=== PATIENT | male | born 1950 | race Caucasian/White ===

== ENCOUNTER → 2018-07-25 | Outpatient (CLI) | payer OTHER ==
[~2018-07-25] MED LIST: IOPAMIDOL 370 MG/ML 200 ML INFUS..BTL INJ ONE; SODIUM CHLORIDE 0.9% 100 ML 100 ML ONE; SODIUM CHLORIDE 0.9% 250ML 250 ML ONE; SODIUM CHLORIDE 0.9% 500ML 500 ML ONE
[2018-07-25 15:19] LABS: CREATININE, SERUM 1.34 mg/dL (0.72-1.25)
--- NOTE | 2018-07-26 08:15 | Diagnostic Imaging Report ---
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 Technique: Arterial phase CT abdomen and pelvis and bilateral lower extremities after administration of 100 mL Isovue-370 intravenous contrast. Volume rendered 3-D images of the arterial tree generated on an independent workstation under physician supervision. RADIATION DOSE: DLP: 1631.3 mGy cm Dose modulation, iterative reconstruction, and/or weight based adjustment of the mA/kV was utilized to reduce the radiation dose to as low as reasonably achievable. FINDINGS: VASCULAR: Aortic dimensions: Diaphragmatic hiatus: 2.8 cm Level of the renal arteries: 2.3 cm Infrarenal aorta: 1.9 cm Right common iliac artery: 0.9 cm Left common iliac artery: 1.0 cm. No evidence of dissection or aneurysm. There is moderate atherosclerotic calcifications of the abdominal aorta. The celiac artery, SMA, and JULIETTE are patent. Renal arteries: Single bilateral renal arteries. Atherosclerotic changes of proximal left renal artery without severe stenosis. Moderate atherosclerotic changes of bilateral common iliac arteries with focal mild stenosis of the left common iliac artery on series 3, image 85. Moderate atherosclerotic changes of bilateral external iliac and common femoral arteries with multifocal mild stenoses. Extensive atherosclerotic changes of bilateral internal iliac arteries with multifocal mild to moderate stenoses. Right lower extremity: There has been right superficial femoral artery bypass. The [place] right superficial femoral artery is occluded at the origin, partially reconstitutes with hairline lumen proximally on series 3, image 151, and then occludes subsequently from its proximal portion. The profunda femoris artery demonstrates mild stenosis but is patent. The femoral artery bypass demonstrates multifocal mild atherosclerotic changes without significant stenosis. The popliteal artery is occluded proximally. The bypass reconstitutes the distal popliteal artery which consists moderate atherosclerotic changes with moderate stenoses. The tibioperoneal trunk demonstrates moderate atherosclerotic changes with moderate stenosis. The anterior tibial artery demonstrates multifocal atherosclerotic changes with multifocal moderate stenoses but appears patent to the distal leg. Anterior tibial artery is not visualized at the level of the ankle and the dorsalis pedis is not visualized. The peroneal artery is somewhat diminutive but is patent to the level of the lower leg, and is not visualized at the ankle. The posterior tibial artery demonstrates atherosclerotic changes with mild stenosis at the origin, but is patent throughout its course and is the dominant supply to the right foot. Left lower extremity: Atherosclerotic changes of the left superficial femoral artery which demonstrates multifocal severe stenosis at the origin and proximally. There are multiple superficial femoral artery stents extending from the proximal portion to the mid portion, which are occluded. The profunda femoris artery demonstrates multifocal mild stenoses and is patent. The distal superficial femoral artery reconstitutes from profunda femoris branches, and demonstrates extensive atherosclerotic changes with multifocal severe stenoses. There are extensive atherosclerotic changes of the popliteal artery with multifocal mild to moderate stenoses. Mild atherosclerotic changes of the anterior tibial artery, which is patent throughout its course and supplies the dorsalis pedis to the foot. Extensive atherosclerotic changes of the tibioperoneal trunk which demonstrates moderate to severe stenosis. The peroneal artery demonstrates multifocal severe stenosis of the origin and is occluded from the proximal portion. The posterior tibial artery demonstrates multifocal severe stenoses at the origin, is diminutive in caliber throughout its course and is not visualized distal to the lower leg. NON-VASCULAR FINDINGS: Lung bases: The lung bases are clear. Coronary atherosclerosis. Liver: No evidence of focal mass. No evidence of biliary ductal dilatation. Pancreas: Unremarkable. Spleen: No splenomegaly. Adrenal glands: Unremarkable. Kidneys: No evidence of hydronephrosis, stone, or solid mass. Urinary bladder: Unremarkable. Bowel: Normal caliber. No evidence of bowel obstruction. Sigmoid diverticulosis without CT evidence of diverticulitis. Normal appendix. Peritoneum: No free air or fluid. Lymph nodes: Normal Bones and soft tissues: No acute bony abnormality. Intramuscular right gluteal lipoma measuring up to 8.5 cm. There is subcutaneous edema in the bilateral lower extremities. Postsurgical changes involving the right groin and medial knee soft tissues. IMPRESSION: No evidence of abdominal aortic aneurysm or dissection. Patent mesenteric and renal vasculature. Right superficial femoral artery is occluded proximally and throughout its course. Patent right superficial femoral artery bypass which reconstitutes the distal popliteal artery. Moderate atherosclerotic changes of the right lower extremity with single vessel runoff to the right foot supplied by a patent posterior tibial artery. Anterior tibial artery is visualized to the lower leg but not seen distally, which may be secondary to occlusion or slow flow. Diminutive peroneal artery visualized to the level of the lower leg. Severe atherosclerotic changes of the left superficial femoral artery with multifocal severe stenoses proximally. Multiple proximal and mid left superficial femoral artery stents are occluded. Reconstitution of the distal left superficial femoral artery via patent profunda femoris collaterals. Severe atherosclerotic changes of the popliteal artery and tibioperoneal trunk. Essentially single vessel runoff to the left foot via the anterior tibial artery. Multifocal severe stenoses of the peroneal artery at the origin which is occluded proximally. Multifocal severe stenoses of the posterior tibial artery at the origin, which is diminutive in caliber and not visualized distal to the lower leg, which may be secondary to occlusion or slow flow. Subcutaneous edema in the bilateral lower extremities. Signed by: Dr. Janiya Mcarthur MD on 07/26/2018 8:11 AM
== END ==
LOC: CT 14:21
PROVIDERS: ATTEND Internal Medicine Cardiovascular Disease
DX: I74.3 Embolism and thrombosis of arteries of the lower extremities (principal)
CPT/HCPCS: 36415; 75635; 82565; 84520; 96360; J7040; J7050; Q9967

== ENCOUNTER 2018-10-23 09:23 | Inpatient (IN) | payer OTHER ==
[2018-10-20 10:28] LABS: BASOPHILS # (AUTO) 0.1 (0.0-0.1); BASOPHILS % 0.8 % (0.0-1.0); EOSINOPHILS # (AUTO) 0.3 (0.0-0.4); EOSINOPHILS % 3.8 % (0.0-6.0); HEMATOCRIT 37.9 % (38.2-49.6); HEMOGLOBIN 12.6 g/dL (14.0-18.0); LYMPHOCYTES # (AUTO) 1.5 (1.0-3.2); LYMPHOCYTES % 20.8 % (18.0-39.1); MEAN CORPUSCULAR HEMOGLOBIN 31.8 pg (28-32); MEAN CORPUSCULAR HGB CONC 33.2 g/dL (31-35); MEAN CORPUSCULAR VOLUME 95.7 fL (81-99); MONOCYTES # (AUTO) 0.8 (0.2-0.8); MONOCYTES % 10.8 % (4.4-11.3); NEUTROPHILS # (AUTO) 4.5 (2.1-6.9); NEUTROPHILS % 63.5 % (38.7-80.0); PLATELET COUNT 160 x10e3/uL (140-360); RED BLOOD COUNT 3.96 x10e6/uL (4.3-5.7); RED CELL DISTRIBUTION WIDTH 12.7 % (11.7-14.4)
--- NOTE | 2018-10-20 10:35 | Diagnostic Imaging Report ---
EXAMINATION: CHEST 2 VIEWS INDICATION: Pre-admit. COMPARISON: Chest radiograph 04/07/17. FINDINGS: The right costophrenic angle is partially excluded from the [id number]. TUBES and LINES: None. LUNGS: Lungs are well inflated. There is no evidence of pneumonia or pulmonary edema. PLEURA: No pleural effusion or pneumothorax. HEART AND MEDIASTINUM: The cardiomediastinal silhouette is unremarkable. There are atherosclerotic calcifications within the aorta. BONES AND SOFT TISSUES: No acute osseous abnormality. Degenerative changes of the visualized spine. UPPER ABDOMEN: No free air under the diaphragm. IMPRESSION: No acute radiographic abnormality. Signed by: Dr. Janiya Mcarthur MD on 10/20/2018 10:31 AM
[2018-10-20 10:52] LABS: ANION GAP 13.5 mmol/L (8-16); CALCIUM 9.1 mg/dL (8.4-10.2); CREATININE, SERUM 2.16 mg/dL (0.72-1.25)
[2018-10-20 10:53] LABS: POTASSIUM 5.5 mmol/L (3.5-5.1)
[~2018-10-23] VITALS: Ht 188 cm; Wt 140.6 kg
[2018-10-23 08:55] LABS: ANION GAP 12.3 mmol/L (8-16); CALCIUM 9.4 mg/dL (8.4-10.2); CREATININE, SERUM 1.33 mg/dL (0.72-1.25); POTASSIUM 5.3 mmol/L (3.5-5.1)
[~2018-10-23 09:23] MED LIST changes: +BACITRACIN 50,000 UNIT VIAL ONE; +CEFAZOLIN SOD 2 GM/D5W 50ML 50 ML IV ONE; +CILOSTAZOL100 MG PO; +CLOPIDOGREL75 MG PO; +CYCLOBENZAPRINE10 MG PO; +DEXAMETHASONE SOD PHOS 10 MG/1 ML VIAL ONE; +FISH OIL 1,0001 EAC2; +FUROSEMIDE40 MG PO; +GABAPENTIN 300 MG CAP ONE; +GLIPIZIDE ER5 MG; +GLIPIZIDE5 MG PO; +INSULIN REGULAR, HUMAN 100 UNIT/1 ML 3ML VIAL ONE; -IOPAMIDOL 370 MG/ML 200 ML INFUS..BTL INJ ONE; +LEVEMIR100 UNIT/1; +LYRICA75 MG; +OMEPRAZOLE40 MG; +POTASSIUM CHLO10 ME1 PO; +PRIMIDONE1 GM; +ROPIVACAINE 246.25 MG, EPINEPHRINE HCL 1:1000 1ML 0.5 MG, CLONIDINE HCL 0.08 MG, KETORO... INJ ONE; +SIMVASTATIN40 MG PO; -SODIUM CHLORIDE 0.9% 100 ML 100 ML ONE; -SODIUM CHLORIDE 0.9% 250ML 250 ML ONE; +TRANEXAMIC ACID 1,000 MG/10 ML ML ONE; +VANCOMYCIN HCL 1,000 MG ONE; +VASOTEC10 M1
--- OUTSIDE RECORDS SUMMARY | 2018-10-23 09:25 | XMS REPORT | Clinical Summary ---
Author Author [facility] Organization [facility] Address Unknown Phone Unavailable Care Team Providers Care Chief [facility] Name Role Phone Luis Roe MD PCP Allergies No Known Allergies Medications End Date Status Medication Sig Dispensed Refills Start Date Active ONETOUCH ULTRA TEST strip 0 test strips 7 Active ALCOHOL PREP PADS pads, 0 medicated 7 Active ONETOUCH ULTRA CONTROL 0 solution 7 Active ONETOUCH ULTRA2 kit 0 7 Active omeprazole (PriLOSEC) 40 TK ONE C PO 3 MG capsule QAM 7 Active buPROPion XL (WELLBUTRIN TK 1 T PO QD 5 XL) 150 MG 24 hr tablet 7 Active potassium chloride TK 1 T PO 2 (KLOR-CON) 10 MEQ CR QAM 7 tablet Active simvastatin (ZOCOR) 40 MG TK 1 T PO 2 tablet QHS 7 Active enalapril (VASOTEC) 20 MG TK 1 T PO BID 2 tablet 7 Active furosemide (LASIX) 40 mg TK 1 T PO QD 3 tablet 7 Active clopidogrel (PLAVIX) 75 TK 1 T PO 2 mg tablet QAM 7 Active glipiZIDE (GLUCOTROL) 10 TK 1 T PO QAM 2 MG 24 hr tablet 7 Active metoprolol tartrate TK 1 T PO 2 (LOPRESSOR) 50 mg tablet BID 7 Active cilostazol (PLETAL) 100 TK 1 T PO 30 2 MG tablet MINUTES 7 BEFORE OR 2 HOURS AFTER BREAKFAST AND DINNER BID UTD FOR 90 DAYS Active primidone (MYSOLINE) 50 TK 2 TS PO 2 MG tablet TID 7 Active LANTUS SOLOSTAR 100 INJECT 80 2 unit/mL injection (pen) UNITS SQ QAM 7 AND 40 UNITS SQ QPM Active HYDROcodone-acetaminophen TK 1 T PO 0 (NORCO) 10-325 mg per TID 7 tablet Active lancets 30 gauge misc 0 7 Active lancing device misc 0 7 Active ciprofloxacin (CIPRO) 500 TK 1 T PO 0 MG tablet BID 9 Active CHANTIX STARTING MONTH U BID UTD 0 BOX 0.5 mg (11)- 1 mg 9 (42) tablet Active LEVEMIR FLEXTOUCH U-100 INJ 90 UNITS 3 INSULN 100 unit/mL (3 mL) QAM AND 90 8 insulin pen UNITS QPM Active Problems Problem Noted Date Hearing loss, sudden 03/01/2017 Asymmetrical hearing loss 03/01/2017 Bilateral impacted cerumen 03/01/2017 Encounters Care Team Description Date Type Specialty Nelson Haji MD Bilateral impacted cerumen (Primary Dx) 08/18/2018 Office Visit Otolaryngology after 10/22/2017 Social History Date Tobacco Use Types Packs/Day Years Used Current Every Day Smoker Smokeless Tobacco: Never Used Alcohol Use Drinks/Week oz/Week Comments Yes Sex Assigned at Date Recorded Not on file Industry Job Start Date Occupation Not on file Not on file Not on file Travel End Travel History Travel Start No recent travel history available. Last Filed Vital Signs Time Taken Vital Sign Reading 08/18/2018 10:06 AM [employer] Blood Pressure 139/68 08/18/2018 10:06 AM [employer] Pulse 80 - Temperature - - Respiratory Rate - - Oxygen Saturation - - Inhaled Oxygen - Concentration 08/18/2018 10:06 AM [employer] Weight 139 kg (307 lb) 08/18/2018 10:06 AM [employer] Height 188 cm (6' 2") 08/18/2018 10:06 AM [employer] Body Mass Index 39.42 Plan of Treatment Care Team Description [place] [address] [facility] [address] [place] [address] 02/15/2019 Office Visit Otolaryngology Health Maintenance Due Date Last Done Comments COLON CANCER SCREENING 1999 SHINGLES VACCINES (#1) 1999 65+ PNEUMOCOCCAL VACCINE 2014 (1 of 2 - PCV13) PNEUMOCOCCAL 2014 POLYSACCHARIDE VACCINE AGE 65 AND OVER INFLUENZA VACCINE 02/08/2019 Results Not on fileafter 10/22/2017 Insurance Payer Benefit Subscriber ID Type Phone Address Plan / Group [employer] xxxxxxxxx HMO [facility] Advance Directives Patient has advance care planning documents on file. For more information, alejandrina melvin contact: Tae Poole [address] [place] [address]
--- OUTSIDE RECORDS SUMMARY | 2018-10-23 09:25 | XMS REPORT ---
[email or web address]nect Address Unknown Phone Unavailable Care Team Providers Care Recruitment Intern Name Role Phone ROSS PRICE Unavailable Unavailable ANITRA FREEMAN Unavailable Unavailable VANDANA ROE Unavailable Unavailable Payers Payer Name Policy Type Policy Number Effective Date Expiration Date Problems This patient has no known problems. Allergies, Adverse Reactions, Alerts Allergy Name Allergy Type Status Severity Reaction(s) Onset Date Inactive Date Treating Clinician Comments No Known Allergies DA Active U 2018-09-12 00:00:00 Medications This patient has no known medications. Results Test Description Test Time Test Comments Text Results Atomic Results Result Comments CHEST 2 VIEWS 2018-10-20 10:25:00 [place] [address] Patient Name: VANDANA ESPINOZA MR #: [id number] : 1950 Age/Sex: 68/M Req #: [id number] Adm Physician: Ordered by: ROSS PRICE MD Report #: [id number] Location: OR Room/Bed: Procedure: [id number] DX/CHEST 2 VIEWS Exam Date: Exam Time: REPORT STATUS: Signed EXAMINATION: CHEST 2 VIEWS INDICATION: Pre-admit. COMPARISON: Chest radiograph 04/07/17. FINDINGS: The right costophrenic angle is partially excluded from the [id number]. TUBES and LINES: None. LUNGS: Lungs are well inflated. There is no evidence of pneumonia or pulmonary edema. PLEURA: No pleural effusion or pneumothorax. HEART AND MEDIASTINUM: The cardiomediastinal silhouette is unremarkable. There are atherosclerotic calcifications within the aorta. BONES AND SOFT TISSUES: No acute osseous abnormality. Degenerative changes of the visualized spine. UPPER ABDOMEN: No free air under the diaphragm. IMPRESSION: No acute radiographic abnormality. Signed by: Dr. Robbie Lainez MD on 10/20/2018 10:31 AM Dictated By: ROBBIE LAINEZ MD 1031 Transcribed By: ROMINA on 10/20/18 1031 COPY TO: ROSS PRICE MD COAGULATION TIME ACTIVATED 2018-09-13 15:29:00 COAGULATION TIME ACTIVATED (test code=ACT) 363 SECONDS 105-167 BASIC METABOLIC [id number] 15:18:00* Test Item Value Reference Range Comments SODIUM (test code=NA) 138 mEq/L 134-147 POTASSIUM (test code=K) 4.2 mEq/L 3.4-5.0 CHLORIDE (test code=CL) 109 mEq/L 100-108 CARBON DIOXIDE (test code=CO2) 25 mEq/L 21-33 ANION GAP (test code=GAP) 8 0-20 GLUCOSE (test code=GLU) 61 mg/dL 70-110 BLOOD UREA NITROGEN (test code=BUN) 32 mg/dL 7-18 GLOMERULAR FILTRATION RATE (test code=GFR) 54.7 80-90 Units of measure=ml/min/1.73 m2 CREATININE (test code=CREAT) 1.3 mg/dL 0.6-1.3 CALCIUM (test code=CA) 9.0 mg/dL 8.0-10.5 PROTHROMBIN [id number] 14:57:00* Test Item Value Reference Range Comments PROTHROMBIN TIME PATIENT (test code=PTP) 12.1 SECONDS 9.3-12.9 INTERNATIONAL NORMAL RATIO (test code=INR) 1.1 0.8-1.2 TARGET INR BY INDICATION Indication INR1. Prophylaxis of venous thrombosis 2.0 - 3.0 (orthopedic surgery), Prophylaxis of venous thrombosis (other than high-risk surgery), Treatment of Deep Vein Thrombosis/Pulmonary Embolism, Prevention of systemic embolism - Tissue heart valves, Acute Myocardial Infarction (to prevent systemic embolism), Valvular heart disease, Atrial Fibrillation, Bileaflet mechanical valve in aortic position.2. Mechanical prosthetic valves (high risk), 2.5 - 3.5 Presence of Lupus Anticoagulant or Antiphospholipid Antibodies, Prevention of systemic embolism - Acute Myocardial Infarction (to prevent recurrent infarct). - XR CHEST 2 [id number] 14:53:00 FAX: Neena Burnett [phone] [place]: St: PRE FAX: Vandana Roe [facility] [phone] Name: VANDANA ESPINOZA [facility] : 1950 Age/S: 68/M [address] [place] [address] Unit #: [id number] Loc: [place] [address] Phys: Neena Broderick MD Acct: [id number] Dis Date: Status: PRE [facility] PHONE #: [phone] Exam Date: 09/12/2018 1444 FAX #: [phone] Reason: PERIPHERAL ANGIO EXAMS: CPT CODE: [id number] XR CHEST 2 V [id number] EXAM: XR CHEST 2 VIEWS DATE: 09/12/2018 1:14 PM : 1950; Age: 68 years y/o Male INDICATION: Embolism PERIPHERAL ANGIO COMPARISON: None. TECHNIQUE: PA and lateral chest radiographs. FINDINGS: Lines, tubes and hardware: None. Lungs and pleura: The lungs are clear. No pleural effusion. Heart and mediastinum: The heart size is normal for technique. Vascular calcifications are present at the aorta. Pulmonary vascularity is normal. IMPRESSION: No acute cardiopulmonary process. SL: [id number] at 2033 Reported and signed by: Davie Santizo D.O. CC: Neena Broderick MD; Vandana Ye MD Technologist: Andie Brownlee, RT(R)(M) Trnscrd Date/Time/By: 09/12/2018 (2003) : By: [email or web address] Orig Print D/T: S: 09/12/2018 (2474) PAGE 1 Signed Report CBC W/AUTO [id number] 14:51:00* Test Item Value Reference Range Comments WHITE BLOOD CELL (test code=WBC) 8.50 x10 3/uL 4.5-11.0 RED BLOOD CELL (test code=RBC) 4.14 x10 6/uL 4.00-5.60 HEMOGLOBIN (test code=HGB) 13.3 g/dL 12.5-16.9 HEMATOCRIT (test code=HCT) 41.1 % 37.5-50.7 MEAN CELL VOLUME (test code=MCV) 99.3 fL 81.0-99.0 MEAN CELL HGB (test code=MCH) 32.1 pg 27.0-33.0 MEAN CELL HGB CONCETRATION (test code=MCHC) 32.4 g/dL 33.0-37.0 RED CELL DISTRIBUTION WIDTH CV (test code=RDW) 12.8 % 11.5-14.5 RED CELL DISTRIBUTION WIDTH SD (test code=RDW-SD) 47.5 fL 37.0-54.0 PLATELET COUNT (test code=PLT) 165 x10 3/uL 150-400 IMMATURE PLATELET FRACTION (test code=IPF) 13.2 % 0.9-11.2 MEAN PLATELET VOLUME (test code=MPV) 14.1 fL 7.0-9.0 NEUTROPHIL % (test code=NT%) 44.8 % 56.0-77.0 IMMATURE GRANULOCYTE % (test code=IG%) 0.4 % 0.0-2.0 LYMPHOCYTE % (test code=LY%) 37.9 % 14.0-32.0 MONOCYTE % (test code=MO%) 12.4 % 4.8-9.0 EOSINOPHIL % (test code=EO%) 3.8 % 0.3-3.7 BASOPHIL % (test code=BA%) 0.7 % 0.0-2.0 NUCLEATED RBC % (test code=NRBC%) 0.0 % 0-0 NEUTROPHIL # (test code=NT#) 3.82 x10 3/uL 2.0-7.6 IMMATURE GRANULOCYTE # (test code=IG#) 0.03 x10 3/uL 0.00-0.03 LYMPHOCYTE # (test code=LY#) 3.22 x10 3/uL 1.0-3.8 MONOCYTE # (test code=MO#) 1.05 x10 3/uL 0.1-0.8 EOSINOPHIL # (test code=EO#) 0.32 x10 3/uL 0.0-0.2 BASOPHIL # (test code=BA#) 0.06 x10 3/uL 0.0-0.2 NUCLEATED RBC # (test code=NRBC#) 0.00 x10 3/uL 0.0-0.1 MANUAL DIFF REQUIRED (test code=MDIFF) NO CTA ABD/PEL/RUN [id number] 07:37:00 [place] [address] Patient Name: VANDANA ESPINOZA MR #: [id number] : 1950 Age/Sex: 68/M Req #: [id number] Adm Physician: Ordered by: ANITRA FREEMAN JR DO Report #: [id number] Location: [place] Room/Bed: Procedure: [id number] CT /CTA ABD/PEL/RUN OFF Exam Date: 07/25/18 Exam Time: 1630 REPORT STATUS: Signed CTA a bdomen and pelvis with contrast with bilateral lower extremity runoff [facility] history: Embolism and thrombosis of arteries Comparison: None. Te chnique: Arterial phase CT abdomen and pelvis and bilateral lower extremities after administration of 100 mL Isovue-370 intravenous contrast. Volume re ndered 3-D images of the arterial tree generated on an independent workstation under physician supervision. RADIATION DOSE: DLP: 1631.3 mGy cm Do se modulation, iterative reconstruction, and/or weight based adjustment of the mA/kV was utilized to reduce the radiation dose to as low as reasonably achie vable. FINDINGS: VASCULAR: Aortic dimensions: Diaphragmatic hiatus: 2.8 cm Level of the renal arteries: 2.3 cm Infrarenal aorta: 1.9 cm Right common iliac artery: 0.9 cm Left common iliac artery: 1.0 cm. No evidenc e of dissection or aneurysm. There is moderate atherosclerotic calcifications of the abdominal aorta. The celiac artery, SMA, and JULIETTE are patent. R enal arteries: Single bilateral renal arteries. Atherosclerotic changes of pro ximal left renal artery without severe stenosis. Moderate atherosclerotic changes of bilateral common iliac arteries with focal mild stenosis of the lef t common iliac artery on series 3, image 85. Moderate atherosclerotic changes of bilateral external iliac and common femoral arteries with multifocal mild s tenoses. Extensive atherosclerotic changes of bilateral internal iliac arterie s with multifocal mild to moderate stenoses. Right lower extremity: Ther e has been right superficial femoral artery bypass. [place] right superfici al femoral artery is occluded at the origin, partially reconstitutes with hair line lumen proximally on series 3, image 151, and then occludes subsequently f rom its proximal portion. The profunda femoris artery demonstrates mild stenos is but is patent. The femoral artery bypass demonstrates multifocal mild ather osclerotic changes without significant stenosis. The popliteal artery is occlu ded proximally. The bypass reconstitutes the distal popliteal artery which con sists moderate atherosclerotic changes with moderate stenoses. The tibioperone al trunk demonstrates moderate atherosclerotic changes with moderate stenosis. The anterior tibial artery demonstrates multifocal atherosclerotic changes wi th multifocal moderate stenoses but appears patent to the distal leg. Anterior tibial artery is not visualized at the level of the ankle and the dorsalis pe dis is not visualized. The peroneal artery is somewhat diminutive but is paten t to the level of the lower leg, and is not visualized at the ankle. The poste rior tibial artery demonstrates atherosclerotic changes with mild stenosis at the origin, but is patent throughout its course and is the dominant supply to the right foot. Left lower extremity: Atherosclerotic changes of the left superficial femoral artery which demonstrates multifocal severe stenosis at t he origin and proximally. There are multiple superficial femoral artery stents extending from the proximal portion to the mid portion, which are occluded. T he profunda femoris artery demonstrates multifocal mild stenoses and is paten t. The distal superficial femoral artery reconstitutes from profunda femoris b ranches, and demonstrates extensive atherosclerotic changes with multifocal se jag stenoses. There are extensive atherosclerotic changes of the popliteal ar farshad with multifocal mild to moderate stenoses. Mild atherosclerotic changes o f the anterior tibial artery, which is patent throughout its course and suppli es the dorsalis pedis to the foot. Extensive atherosclerotic changes of the ti bioperoneal trunk which demonstrates moderate to severe stenosis. The peroneal artery demonstrates multifocal severe stenosis of the origin and is occluded from the proximal portion. The posterior tibial artery demonstrates multifocal severe stenoses at the origin, is diminutive in caliber throughout its course and is not visualized distal to the lower leg. NON-VASCULAR FINDINGS: Lung bases: The lung bases are clear. Coronary atherosclerosis. Liver: No brian dence of focal mass. No evidence of biliary ductal dilatation. Pancreas: Unre markable. Spleen: No splenomegaly. Adrenal glands: Unremarkable. Kidney s: No evidence of hydronephrosis, stone, or solid mass. Urinary bladder: Unr emarkable. Bowel: Normal caliber. No evidence of bowel obstruction. Sigmoid diverticulosis without CT evidence of diverticulitis. Normal appendix. Kavitha toneum: No free air or fluid. Lymph nodes: Normal Bones and soft tissues : No acute bony abnormality. Intramuscular right gluteal lipoma measuring up t o 8.5 cm. There is subcutaneous edema in the bilateral lower extremities. Post surgical changes involving the right groin and medial knee soft tissues. IMPRESSION: No evidence of abdominal aortic aneurysm or dissection. Patent mes enteric and renal vasculature. Right superficial femoral artery is occlud ed proximally and throughout its course. Patent right superficial femoral bess ry bypass which reconstitutes the distal popliteal artery. Moderate atheroscle rotic changes of the right lower extremity with single vessel runoff to the ri ght foot supplied by a patent posterior tibial artery. Anterior tibial artery is visualized to the lower leg but not seen distally, which may be secondary t o occlusion or slow flow. Diminutive peroneal artery visualized to the level o f the lower leg. Severe atherosclerotic changes of the left superficial fe moral artery with multifocal severe stenoses proximally. Multiple proximal and mid left superficial femoral artery stents are occluded. Reconstitution of the distal left superficial femoral artery via patent profunda femoris collatera ls. Severe atherosclerotic changes of the popliteal artery and tibioperoneal t runk. Essentially single vessel runoff to the left foot via the anterior tibia l artery. Multifocal severe stenoses of the peroneal artery at the origin whic h is occluded proximally. Multifocal severe stenoses of the posterior tibial artery at the origin, which is diminutive in caliber and not visualized distal to the lower leg, which may be secondary to occlusion or slow flow. Subc utaneous edema in the bilateral lower extremities. Signed by: Dr. Robbie beckford MD on 07/26/2018 8:11 AM Dictated By: ROBBIE LAINEZ MD Electronically Si gned By: ROBBIE LAINEZ MD on 07/26/18 0811 Transcribed By: ROMINA on 07/26/18 081 1 COPY TO: ANITRA FREEMAN JR, DO CHEST 2 VIEWS [place] [address] Patient Name: VANDANA ESPINOZA MR #: [id number] : 1950 Age/Sex: 67/M Req #: [id number] Adm Physician: Ordered by: VANDANA ROE MD Report #: [id number] Location: [facility] Room/Bed: Procedure: [id number] DX/CHEST 2 VIEWS Exam Date: 03/12 02/24 Exam Time: 1145 REPORT STATUS: Signed P ROCEDURE: Frontal and lateral views of the chest. COMPARISON: None. INDICATIONS: COUGH FINDINGS: Lines/tubes: None. Lungs: T he lungs are well inflated and clear. There is no evidence of pneumonia or pu lmonary edema. Pleura: There is no pleural effusion or pneumothorax. Heart and mediastinum: The heart and the mediastinum are normal. Bones: No acute bony abnormality. IMPRESSION: 1. No acute cardiopulmonary abnormalities. Rashad Graf M.D. Dictated by: Rashad Graf M.D. on 04/07/2017 at 12:56 Electronically approved by: Rashad Graf M.D. on 04/07/2017 at 12:56 Dictated By: RASHAD SCHWARTZ MD 1256 Transcribe d By: FAROOQ on 04/07/17 1256 COPY TO: VANDANA ROE MD KNEE THREE VIEWS BILATERAL [place] [address] Patient Name: VANDANA ESPINOZA MR #: [id number] : 1950 Age/Sex: 67/M Req #: [id number] Adm Physician: Ordered by: VANDANA ROE MD Report #: [id number] Location: [facility] Room/Bed: Procedure: [id number] DX/KNEE THREE VIEWS BILATERAL Ex am Date: 04/07/17 Exam Time: 1145 REPORT STATUS : Signed PROCEDURE: KNEE THREE VIEWS BILATERAL COMPARISON: None. INDICATIONS: BILATERAL KNEE PAIN FINDINGS: Right: Normal minera lization. No acute displaced fracture or dislocation. Mild degenerative puja nges in the right knee joint, with tibial spine, and marginal osteophytes. Sl ight medial femoral tibial joint space narrowing. No lytic or blastic lesions . Vascular calcifications. Small suprapatellar effusion. Left: Normal mineralization. No acute, displaced fracture or dislocation. No lytic or marcial tic lesions. Mild degenerative joint disease with tibial spines and patellar osteophytes. Small to moderate suprapatellar effusion. Vascular calcificat ions. CONCLUSION: Mild bilateral degenerative joint disease. Small right and small to moderate left suprapatellar effusions. Rashad Graf M.D. Dictated by: Rashad Graf M.D. on 04/07/2017 at 18:56 Electronically approved by: Rashad Graf M.D. on 04/07/2017 at 18 :56 Dictated By: RASHAD GRAF MD 55 Transcribed By: FAROOQ on 04/07/171855 CO PY TO: VANDANA ROE MD
[2018-10-23] MEDS: SODIUM CHLORIDE 0.9% 1000ML 1,000 ML IV SCH ×2 (10:43→20:43)
[2018-10-23] MEDS ORDERED: ONDANSETRON HCL INJ 2MG/ML 2ML 2 MG/ML VIAL IV PRN (10:45)
[2018-10-23] MEDS ORDERED: DIPHENHYDRAMINE HCL INJ 50 MG/ML VIAL IM/IV PRN (10:45)
[2018-10-23] MEDS ORDERED: HYDROCODONE/APAP 5MG-325MG TAB PO PRN (10:45)
[2018-10-23] MEDS ORDERED: PROMETHAZINE HCL (IM) 25 MG/ML VIAL INJ PRN (10:45)
[2018-10-23] MEDS ORDERED: ZOLPIDEM TARTRATE 5 MG TAB PO PRN (10:45)
[2018-10-23] MEDS ORDERED: ACETAMINOPHEN 650 MG SUPP PR PRN (10:45)
[2018-10-23] MEDS ORDERED: DOCUSATE SODIUM 100 MG CAP PO PRN (10:45)
[2018-10-23] MEDS ORDERED: FENTANYL CITRATE/PF 100MCG/2 ML INJ ONE ×2 (11:18→18:44)
--- OUTSIDE RECORDS SUMMARY | 2018-10-23 11:46 | XMS REPORT | Clinical Summary ---
Author Author [facility] Address Unknown Phone Unavailable Care Team Providers Care Laborer Car Barn Name Role Phone Luis Roe MD PCP [...] Taken Vital Sign Reading 08/18/2018 10:06 AM INSECT CONTROL INSPECTOR Blood Pressure 139/68 08/18/2018 10:06 AM INSECT CONTROL INSPECTOR Pulse 80 - Temperature - - Respiratory Rate - - Oxygen Saturation - - Inhaled Oxygen - Concentration 08/18/2018 10:06 AM INSECT CONTROL INSPECTOR Weight 139 kg (307 lb) 08/18/2018 10:06 AM INSECT CONTROL INSPECTOR Height 188 cm (6' 2") 08/18/2018 10:06 AM INSECT CONTROL INSPECTOR Body Mass Index 39.42 Plan of Treatment Care Team Description [place] [id number] [facility] [address] [place] [address] 02/15/2019 Office Visit Otolaryngology Health Maintenance Due Date Last Done Comments COLON CANCER SCREENING 1999 SHINGLES VACCINES (#1) 1999 65+ PNEUMOCOCCAL VACCINE 2014 (1 of 2 - PCV13) PNEUMOCOCCAL 2014 POLYSACCHARIDE VACCINE AGE 65 AND OVER INFLUENZA VACCINE 02/08/2019 Results Not on fileafter 10/22/2017 Insurance Payer Benefit Subscriber ID Type Phone Address Plan / Group TEXANPLUS TEXAN[employer]US xxxxxxxxx HMO [facility] Advance Directives Patient has advance care planning documents on file. For more information, alejandrina melvin contact: Tae Poole [address] [place] [address]
[2018-10-23] MEDS ORDERED: KETOROLAC TROMETHAMINE 30 MG/ML VIAL ONE (14:06)
--- NOTE | 2018-10-23 14:07 | Diagnostic Imaging Report ---
Right hip radiograph-1 view History: Postoperative. Findings: Status post right total hip arthroplasty with prosthetic components in anatomic alignment. Hardware appears intact. Overlying subcutaneous emphysema and surgical skin africa are present. Surgical clips project over the right inguinal region. No evidence of acute fracture. Atherosclerotic vascular calcifications. There is a left femoral stent. IMPRESSION: Status post right total hip arthroplasty in anatomic alignment. Signed by: Dr. Janiya Mcarthur MD on 10/23/2018 2:04 PM
--- NOTE | 2018-10-23 15:43 | Operative Report ---
DATE OF PROCEDURE: 10/23/2018 SURGEON: Gordy Nolasco MD SUPERVISOR FRONT: Ab Isabel, certified PA. PREOPERATIVE DIAGNOSES: 1. Osteoarthritis, right hip. 2. Morbid obesity. POSTOPERATIVE DIAGNOSES: 1. Osteoarthritis, right hip. 2. Morbid obesity. PROCEDURE: Right total hip arthroplasty *added complexity secondary to BMI greater than 40. INDICATIONS: The patient is a 68-year-old gentleman with advanced osteoarthritis of his right hip. He has multiple medical problems including hypertension, cardiac disease, renal disease, and diabetes. We have tried to treat him conservatively without improvement in his quality of life. He would now like to proceed with a right total hip replacement. The added risks for perioperative complications due to his BMI of 41 have been discussed. The added risks because of his other medical concerns in combination with his body mass index was also discussed. He states he cannot continue to live this way. He understands he is at higher risk, but wishes to proceed. PROCEDURE IN DETAIL: The patient was brought to the operating room and given a spinal anesthetic. He received prophylactic antibiotics and tranexamic acid in the holding area. He was positioned in the right lateral decubitus position. It was evident that the spinal anesthetic was not giving him complete anesthesia. He was placed under general anesthetic. His right hip was prepped and draped in a sterile manner. A preoperative time-out was performed. The added personnel and time were necessary due to the patient's weight of nearly 320 pounds. A posterior approach was made to the right hip. Hemostasis was obtained with electrocautery. A deep Charnley retractor was placed. The posterior capsule was carefully exposed. Care was taken to avoid injury to the sciatic nerve. Added challenges were encountered due to the deep and altered surgical field. Short external rotators were released. The posterior capsule was released. Further hemostasis was obtained with electrocautery. The hip was carefully dislocated. The posterior osteophytes were removed in order to achieve a dislocation. An oscillating saw was used to resect the femoral head. Complete loss of articular cartilage down to polished subchondral bone was noted. Acetabular retractors were carefully placed. Labral remnants were excised. A Patti Biomet system was used throughout the case. A 50 mm reamer was used to establish the true floor of the socket. The socket was then sequentially reamed up to 51 mm in order to accomplish hemispherical bleeding cancellous bone. The hip was thoroughly irrigated on a number of occasions with the shower tip pulsatile lavage. Additional irrigation throughout the case was performed with a spray bottle with diluted polymyxin and vancomycin spray. A 62 mm outer diameter OsseoTi socket was then impacted into place. Excellent bone fixation was felt to be obtained. No additional screw fixation was felt to be necessary. Additional marginal osteophytes particularly on the anterior rim were carefully removed. A highly cross-linked polyethylene liner with a 36 mm inner diameter was then seated. Care was taken to make sure that there was no evidence of soft tissue interposition. A portion of a 100 mL premixed pericapsular BEN injection was placed around the socket. The socket was packed with a moist soaked lap sponge and attention was directed toward the proximal femur. The taper lock broaches were impacted. A size 18 stem provided good canal fill and rotational stability. Trial reductions were performed. The hip was put through a full arc of motion with a standard 36 mm head. I felt that he had a good stability and sikhism of limb length. The trial implants were removed. The hip was further irrigated with the pulsatile lavage. The components were seated and a final reduction was performed. The remainder of the BEN injection was placed into the surrounding more superficial tissue. The posterior capsule was carefully reapproximated with interrupted #2 Ethibond. Again, challenges were encountered due to the altered surgical field. The tensor fascia and gluteal fascia were closed with interrupted #2 Ethibond. Subcuticular Vicryl and africa were used to close the skin. Because of the abundant adipose tissue, I elected to use a wound VAC. This was placed. The patient was returned to the supine position, extubated and transported to the recovery room in stable condition. Blood loss was approximately 150 mL. All needle and sponge counts were correct. Gordy Nolasco MD DR/PRIYANK /[id number]
[2018-10-23] MEDS ORDERED: HYDROMORPHONE 2MG/ML 2 MG/ML ML ONE ×2 (16:23→17:01)
[2018-10-23] MEDS: ASPIRIN 325 MG TAB PO SCH (17:00)
[2018-10-23] MEDS ORDERED: PROMETHAZINE HCL (IM) 25 MG/ML VIAL ONE (17:01)
[2018-10-23] MEDS ORDERED: DIPHENHYDRAMINE HCL INJ 50 MG/ML VIAL ONE (17:09)
[2018-10-23] MEDS ORDERED: ONDANSETRON HCL INJ 2MG/ML 2ML 2 MG/ML VIAL ONE (17:29)
[2018-10-23] MEDS ORDERED: LIDOCAINE HCL 2% LOCAL INJ 5 ML SDV VIAL INJ ONE (17:29)
[2018-10-23] MEDS ORDERED: GLYCOPYRROLATE INJ 1MG/ 5 ML SYR ONE (17:29)
[2018-10-23] MEDS ORDERED: NEOSTIGMINE 5 MG/5ML SYR ONE (17:29)
[2018-10-23] MEDS ORDERED: PROPOFOL IV EMULSION 10 MG/ML 20 ML VIAL ONE (17:29)
[2018-10-23] MEDS ORDERED: SEVOFLURANE INHAL SOLN 250 ML PEN BTL ONE (17:29)
[2018-10-23] MEDS ORDERED: MIDAZOLAM HCL 2 MG/2 ML VIAL ONE (18:44)
[2018-10-23] MEDS: CEFAZOLIN SOD 1 GM/NS 50ML 50 ML IV SCH ×2 (19:38→19:43)
[2018-10-23 20:18] VITALS: BP 163/72
--- NOTE | 2018-10-23 20:20 | NUR ---
Pt arrived from pacu s/p right total hip replacement.assessment done.aaox3.no resp.distress.pain voiced 12/18.dressing is placed in right hip with wound vac.dry .abduction pillow placed in between legs.oriented to the unit.bed locked and in lowest position.phone and call light within reach.instructed to call for asistance as needed.voided.family member at bed side.keep monitor the pt.iv 20 g to right hand.plexi pump is in place.
[2018-10-23 20:45] VITALS: BP 160/72
[2018-10-23] MEDS: ACETAMINOPHEN 1000 MG/100 ML IV SCH (21:00)
[2018-10-23 21:30] VITALS: BP 163/72
--- NOTE | 2018-10-23 22:00 | NUR ---
Blood sugar noted 225.notified to .received new orders.humalog low doses.pain medicine given.stable condition.
[2018-10-23] MEDS: HYDROCODONE/APAP 7.5MG-325MG 1 EA TAB PO PRN (22:15)
[2018-10-23] MEDS ORDERED: DEXTROSE 50% SYRINGE 50 ML IV PRN (22:15)
[2018-10-23] MEDS: INSULIN LISPRO 100 UNIT/1 ML 3ML VIAL SQ SCH (22:30)
[2018-10-23] MEDS: KETOROLAC TROMETHAMINE 30 MG/ML VIAL IV PRN (22:58)
[2018-10-24] VITALS: BP 141/95
[2018-10-24] MEDS: ACETAMINOPHEN 1000 MG/100 ML IV SCH ×2 (00:10→05:54)
[2018-10-24] MEDS: CEFAZOLIN SOD 1 GM/NS 50ML 50 ML IV SCH (00:20)
[2018-10-24 04:00] VITALS: BP 152/68
[2018-10-24 05:51] LABS: HEMATOCRIT 32.5 % (38.2-49.6)
[2018-10-24] MEDS: SODIUM CHLORIDE 0.9% 1000ML 1,000 ML IV SCH (06:05)
[2018-10-24] MEDS: HYDROCODONE/APAP 7.5MG-325MG 1 EA TAB PO PRN (06:15)
--- NOTE | 2018-10-24 06:50 | NUR ---
Report given to the oncoming rn.walking rounds done.stable condition.
--- NOTE | 2018-10-24 07:49 | NUR ---
Received patient in report this morning. patient sitting up in bed. Wound vac active. Dressing dry and intact. Family member at bedside. No S&S of distress noted. Call light in reach.
[2018-10-24 07:55] VITALS: BP 145/65
[2018-10-24] MEDS: INSULIN LISPRO 100 UNIT/1 ML 3ML VIAL SQ SCH ×2 (08:14→12:20)
[2018-10-24] MEDS: ASPIRIN 325 MG TAB PO SCH (08:14)
[2018-10-24] MEDS: KETOROLAC TROMETHAMINE 30 MG/ML VIAL IV PRN (08:29)
[2018-10-24] MEDS ORDERED: INSULIN GLARGINE 100 UNITS/ML VIAL SQ SCH (08:45)
[2018-10-24] MEDS ORDERED: GLIPIZIDE 5 MG TAB PO SCH (09:00)
[2018-10-24] MEDS ORDERED: ENALAPRIL MALEATE 10 MG TAB PO SCH (09:00)
[2018-10-24] MEDS ORDERED: FUROSEMIDE 40 MG TAB PO SCH (09:00)
[2018-10-24] MEDS ORDERED: PANTOPRAZOLE SOD 40 MG TABEC PO SCH (09:00)
[2018-10-24] MEDS ORDERED: CILOSTAZOL 100 MG TAB PO SCH (09:00)
[2018-10-24] MEDS ORDERED: PREGABALIN 75 MG CAP PO SCH (09:00)
[2018-10-24] MEDS ORDERED: CYCLOBENZAPRINE HCL 10 MG TAB PO SCH (09:00)
[2018-10-24] MEDS ORDERED: HYDROCODONE/APAP 10MG-325MG TAB PO SCH ×3 (09:30→16:00)
[2018-10-24] MEDS: NICOTINE 21 MG/EA PATCH TOP SCH ×2 (09:35→09:36)
[2018-10-24] MEDS ORDERED: ACETAMINOPHEN 1000 MG/100 ML IV PRN (10:45)
--- NOTE | 2018-10-24 11:30 | NUR ---
CASE MANAGEMENT ASSESSMENT Quality Analyst/Technical Writer to bedside to discuss plan of care with patient/family. CM/SW role and care transitions discussed. Anticipated discharge plan discussed along with duration of care. CM/SW discussed patients right to make decisions in care. CM/SW work hours given. Patient lives: significant other, daughter, sister Admit/Transfer: from PACU Hospital/ER visits since last admit: 0 POA/Emergency contact: significant other Marion Castillo [phone] Current/Previous Home Health: none. home health referral was sent from Dr. Nolasco's office to [facility]. Choice letter signed and placed in chart. Copy to pt. DESIREE called and spoke to Corrina at [facility] who stated that they are not accepting pt's insurance at this time. DESIREE informed her that a therapist has already reached out to pt. Corrina said she does not see pt in the system. DESIREE called Dewayne, the therapist who spoke to pt. She verified that they have accepted the pt and will see pt tomorrow. DESIREE also spoke with the [facility] liaison Radha and verified that pt will be seen tomorrow. P [phone] F [phone] Operative report and PT notes were faxed. Home health information was printed and given to pt's significant other at bedside. PCP/Follow-up Care: Pt will follow up with Dr. Nolasco as instructed Current/Previous DME: alexa [facility] were delivered to pt's house on Tuesday Medications (referring to index hospitalization or the first time you were in the hospital) a. Were changes made in your medications when you were in the hospital on [date of index hospitalization]? n/a b. Did you understand the changes? n/a c. Were you able to obtain your new medications right away? n/a d. Were you able to take your medications like the doctor wanted you to? n/a e. Did the hospital give you an accurate, easy to understand list of medications when you left? n/a Scale of 1-10 how comfortable does patient feel with disease management in outpatient settin Other Services: none Employment Status: retired Areas of Concerns: recent surgery Referral Needs: home health Education Needs: post operative instructions, therapy IMM/DEAL given and signed (if applicable): IMM letter delivered and explained to pt. He verbalized understanding. Stated he is ready to discharge. Signed copy placed in chart. Copy to pt. Goal for discharge: home with home health CM/SW left business card at the bedside with contact information. Name and number was also written on the patients whiteboard. Patient verbalized understanding of discussion. CM will follow-up with ongoing discharge and transition of care needs.
[2018-10-24 11:48] VITALS: BP 145/65
[2018-10-24 12:09] VITALS: BP 132/60
[2018-10-24] MEDS ORDERED: ONDANSETRON HCL 4 MG ORAL DISINTEGRATING TAB PO PRN (13:30)
[2018-10-24] MEDS ORDERED: NORCO 7.5-3251 EACH PO (13:44)
[2018-10-24] MEDS ORDERED: SIMVASTATIN 40 MG TAB PO SCH (21:00)
== END 2018-10-24 14:02 | disposition home health service (06) | DRG 470 ==
LOC: OR 09:23 → PACU V 10:45 → MED/SURG 20:18
PROVIDERS: ADMIT Specialist; ATTEND Specialist
PROC: 0SR904A Replacement of Right Hip Joint with Ceramic on Polyethylene Synthetic Substitute, Uncemented, Open Approach (ICD-10-PCS; principal; 2018-10-23 09:00)
DX: M16.11 Unilateral primary osteoarthritis, right hip (principal); E66.01 Morbid (severe) obesity due to excess calories; Z68.39 Body mass index [BMI] 39.0-39.9, adult; J44.9 Chronic obstructive pulmonary disease, unspecified; E11.9 Type 2 diabetes mellitus without complications; I73.9 Peripheral vascular disease, unspecified
CPT/HCPCS: 36415; 71046; 72170; 80048; 82948; 85014; 85018; 85025; 86850; 86900; 86920; J0171; J0690; J1100; J1200; J1815; J1885; J2001; J2250; J2405; J2550; J2795; J3370; J7030; J7040